=== PATIENT | female | born 1995 | race African-American/Black ===

== ENCOUNTER 2025-01-15 13:19 | Outpatient (AMB) | payer OTHER, SELFPAY ==
--- NOTE | 2025-01-15 13:22 | A.OFFVIS_ITS ---
Vital Signs 01/15/25 13:23 Height 5 ft 2 in Weight 265 lb BMI 48.5 BP 136/81 Blood Pressure Location Lt brachial Position Sitting Respiration 16 Pulse 112 H Pulse Source Pulse Oximeter Pulse Oximetry (%) 98 Oxygen Delivery Method Room Air Intake Visit Reasons: Low back pain Tunnel Inspector Required: No Allergies hydromorphone [From Dilaudid] Allergy (Severe, Verified 01/15/25 13:25) psychosis, vomiting iodine Allergy (Severe, Verified 01/15/25 13:25) itch, swelling Medication List - Last Reconciled 01/15/25 by Brea Ramos LPN buspirone 20 mg PO BID cholecalciferol (vitamin D3) 125 mcg PO DAILY clonazepam 0.25 mg PO DAILY hydrocodone-acetaminophen 5-300 mg 1 tab PO BID PRN lamotrigine (Lamictal) 100 mg PO DAILY lisdexamfetamine (Vyvanse) 50 mg PO DAILY lithium carbonate 900 mg PO BID montelukast (Singulair) 10 mg PO BEDTIME omeprazole 40 mg PO DAILY trazodone 50 mg PO BEDTIME valacyclovir (Valtrex) 500 mg PO DAILY venlafaxine ER (Effexor XR) 225 mg PO DAILY HPI HPI Low back pain: Details: History of Present Illness The patient is a 29-year-old female presenting with chronic back pain. The pain, predominantly localized to her upper and lower back, initiated approximately 10 years ago and is characterized by a severity of 7 to 8 on a 10-point scale. She has chronic conditions including degenerative disc disease, confirmed by lumbar MRI findings of a broad-based disc bulge and neural foraminal narrowing. Despite attempting physical and massage therapies, stretching techniques, and heat therapy, the patient reports minimal relief. Her ability to perform daily functions, particularly sleep, is hindered by the pain. Lifestyle adjustments are ongoing to address weight gain, a contributory factor to her pain experience. Pain Description - Onset: Approximately 10 years ago - Location: Upper and lower back - Radiation: Not specified - Severity: 7 to 8/10 - Character: Chronic - Aggravating factors: Bending, poor posture, weight - Alleviating factors: Deep tissue massage, stretching exercises, heat therapy - Interference: Sleep disruption, impacts daily living activities Physical Exam - Musculoskeletal- - Pain upon lumbar flexion of the back - Pain upon lumbar extension - Pain upon lateral bending to the left and right - Minimal pain upon axial rotation of the back Results - Imaging: MRI of lumbar spine showed broad-based disc bulge with shallow ridicular protrusion at L5-S1, impacting left S1 nerve root, associating with mild right and moderate left neural foraminal narrowing. Pain Management - Affect: Pain significantly impacts sleep and general wellbeing - Analgesia: Current medications include albuterol, buspirone, clonazepam, Effexor, lamictal, lithium, omeprazole, ubrelvy, zyrtec. Pain described as 7 to 8/10. 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 - Discussed potential candidacy for temporary nerve stimulation pending insurance approval and psychiatrist's clearance. I believe she would benefit from temporary medial branch nerve stimulation of the lumbar medial branches for multifactorial low back pain secondary to disc degeneration, facet arthritis and multifidus dysfunction. If psychological clearance is obtained, we will proceed with temporary medial branch nerve stimulation therapy starting with the left side followed by the right side 2 weeks later. - Discuss evidence-based risks of routine opioid use and avoid cortisone injections due to potential adverse long-term effects. - Follow-up on obtaining TENS unit and implementing it into pain management routine once authorized. Patient was informed and verbally consented to the use of an ambient scribe for clinic note documentation during this visit. Discussion Notes I discussed with the patient the management and treatment options for her chronic back pain, emphasizing non-pharmacological approaches such as physical therapy and lifestyle adjustments, including gym activities and postural modification. We reviewed the risks associated with frequent use of opioids and cortisone injections, focusing instead on the option of temporary medial branch nerve stimulation. She was informed of the detailed procedure process, insurance coverage considerations, and the need for psychological clearance. I advised her on the advantages of using non-pharmacological treatments and offered educational material on nerve stimulation. Instructions were given to follow up on authorization procedures, ensure psychological clearance, and continue current pain management strategies. Patient Instructions - Engage in regular exercises focusing on posture and flexibility. - Avoid the routine use of opioid medications. - Consult with a psychiatrist to obtain clearance for nerve stimulation. - Pursue swimming as a gentle exercise option. - Monitor pain levels and report any changes in severity. - Follow up with primary care regarding alternative pain management medications. Coding Level of Care Code New Pt Level 4 (17842) Diagnoses Lumbar spondylosis M47.816 Dysfunction of the multifidus muscle of lumbar region M62.85 Chronic pain G89.29
[2025-01-15 13:23] VITALS: BP 136/81; PULSE 112; RESP 16; O2SAT 98; BMI 48.5
--- OUTSIDE RECORDS SUMMARY | 2025-01-15 14:24 | XMS_ITS | Continuity of Care Document ---
Author Organization [facility] Address [address] [place] [address] Phone Care Team Providers Care Interactive Media Project Manager Name Role Phone Medical, Records Unavailable Unavailable Allergies, Adverse Reactions, Alerts Substance Reaction Status Criticality iodine ItchingItching Active No Informatio n HYDROMORPHONE HCL Active No Informa tion fish derived swelling/ itchy Active No Informati on shellfish derived swelling/ itchy Active No Info rmation peanut swelling/ itching Active No Informa tion Medications Medication Instructions Dosage Effective Dates (start - stop) Status Comments metformin 500 mg tablet take 1 tablet by oral route 2 times every day with morning and evening meals 500 MG - Active Valtrex 1 gram tablet take 1 tablet by oral route every 12 hours 1000 MG - Active Flomax 0.4 mg capsule take 1 capsule by oral route every day 1/2 hour following the same meal each day 0.4 MG - Active verapamil 80 mg tablet take 1 tablet by oral route 3 times every day 80 MG - Active albuterol sulfate HFA 90 mcg/actuation aerosol inhaler inhale 2 puff by inhalation route every 4 - 6 hours as needed 180 MCG - Active albuterol sulfate HFA 90 mcg/actuation aerosol inhaler inhale 2 puff by inhalation route every 4 - 6 hours as needed 180 MCG - Active famotidine 20 mg tablet take 1 tablet by oral route every day 20 MG - Active trazodone 150 mg tablet take 1 tablet by oral route every day 150 MG - Active lithium carbonate ER 450 mg tablet,extended release take 2 tablet by oral route at bedtime and take 1 tablet in the am - Active Protonix 40 mg tablet,delayed release take 1 tablet by oral route every day 40 MG - Active Singulair 10 mg tablet TAKE ONE TABLET BY MOUTH ONCE DAILY IN THE EVENING 10 MG - Active hydrocodone 5 mg-acetaminophen 325 mg tablet take 1 tablet by oral route every 6 hours as needed for pain 1.00 tablet - Active Vyvanse 50 mg capsule take 1 capsule by oral route every day in the morning 50 MG - Active hydroxyzine HCl 50 mg tablet take 2 tablet by oral route 2 times every day 100 MG - Active iron 325 mg (65 mg iron) tablet take 1 tablet by oral route every day 325 MG - Active Procedures Procedure Date OFFICE/OUTPATIENT VISIT, EST TB INTRADERMAL TEST ROUTINE VENIPUNCTURE SYST BP GE 130 - 139MM HG DIAST BP < 80 MM HG URINALYSIS NONAUTO W/O SCOPE OFFICE/OUTPATIENT VISIT, EST SYST BP LT 130 MM HG DIAST BP 80-89 MM HG ROUTINE VENIPUNCTURE OFFICE/OUTPATIENT VISIT, EST OFFICE/OUTPATIENT VISIT, EST ROUTINE VENIPUNCTURE SYST BP LT 130 MM HG DIAST BP < 80 MM HG OFFICE/OUTPATIENT VISIT, EST SARS-COV-2 DNA AMP PROBE SYST BP LT 130 MM HG DIAST BP < 80 MM HG SYST BP GE 130 - 139MM HG DIAST BP >= 90 MM HG OFFICE/OUTPATIENT VISIT, EST ROUTINE VENIPUNCTURE OFFICE/OUTPATIENT VISIT, EST OFFICE/OUTPATIENT VISIT, EST SYST BP GE 130 - 139MM HG DIAST BP 80-89 MM HG ROUTINE VENIPUNCTURE OFFICE/OUTPATIENT VISIT, EST Hpylori Test OFFICE/OUTPATIENT VISIT, EST SYST BP LT 130 MM HG DIAST BP < 80 MM HG GLYCATED HEMOGLOBIN TEST OFFICE/OUTPATIENT VISIT, EST SYST BP >= 140 MM HG6 IT DIAST BP 80-89 MM HG OFFICE/OUTPATIENT VISIT, EST SYST BP GE 130 - 139MM HG DIAST BP 80-89 MM HG ROUTINE VENIPUNCTURE OFFICE/OUTPATIENT VISIT, EST OFFICE/OUTPATIENT VISIT, EST SARS-COV-2 DNA AMP PROBE OFFICE/OUTPATIENT VISIT, EST SYST BP GE 130 - 139MM HG OFFICE/OUTPATIENT VISIT, EST URINALYSIS NONAUTO W/O SCOPE SYST BP >= 140 MM HG6 IT DIAST BP 80-89 MM HG Fee Ticket Printed In Error ROUTINE VENIPUNCTURE OFFICE/OUTPATIENT VISIT, EST OFFICE/OUTPATIENT VISIT, EST ROUTINE VENIPUNCTURE OFFICE/OUTPATIENT VISIT, EST OFFICE/OUTPATIENT VISIT, EST SYST BP LT 130 MM HG DIAST BP < 80 MM HG ROUTINE VENIPUNCTURE OFFICE/OUTPATIENT VISIT, EST ROUTINE VENIPUNCTURE OFFICE/OUTPATIENT VISIT, EST SYST BP GE 130 - 139MM HG DIAST BP 80-89 MM HG ROUTINE VENIPUNCTURE OFFICE/OUTPATIENT VISIT, EST SYST BP LT 130 MM HG DIAST BP < 80 MM HG TB INTRADERMAL TEST OFFICE/OUTPATIENT VISIT, EST OFFICE/OUTPATIENT VISIT, EST Fee Ticket Printed In Error URINALYSIS NONAUTO W/O SCOPE OFFICE/OUTPATIENT VISIT, EST ROUTINE VENIPUNCTURE Drug Screen [facility] Drug Classes OFFICE/OUTPATIENT VISIT, EST OFFICE/OUTPATIENT VISIT, EST OFFICE/OUTPATIENT VISIT, EST URINALYSIS NONAUTO W/O SCOPE URINE TEST OFFICE/OUTPATIENT VISIT, EST Rocephin injection Per 250 Mg URINALYSIS NONAUTO W/O SCOPE OFFICE/OUTPATIENT VISIT, EST STREP A ASSAY W/OPTIC OFFICE/OUTPATIENT VISIT, EST OFFICE/OUTPATIENT VISIT, EST OFFICE/OUTPATIENT VISIT, EST OFFICE/OUTPATIENT VISIT, EST BICILLIN L-A 100,000 UNITS Penicillin G Benzathine STREP A ASSAY W/OPTIC OFFICE/OUTPATIENT VISIT, EST OFFICE/OUTPATIENT VISIT, EST ROUTINE VENIPUNCTURE OFFICE/OUTPATIENT VISIT, EST URINALYSIS NONAUTO W/O SCOPE HETEROPHILE ANTIBODIES URINE TEST OFFICE/OUTPATIENT VISIT, EST OFFICE/OUTPATIENT VISIT, EST OFFICE/OUTPATIENT VISIT, EST URINALYSIS NONAUTO W/O SCOPE URINE TEST OFFICE/OUTPATIENT VISIT, EST DRAINAGE OF SKIN ABSCESS OFFICE/OUTPATIENT VISIT, EST SPECIMEN HANDLING ROUTINE VENIPUNCTURE URINALYSIS NONAUTO W/O SCOPE URINE TEST IMMUNIZATION ADMIN, EACH ADD TDAP VACCINE >7 IM MENINGOCOCCAL VACCINE, IM IMMUNIZATION ADMIN HEP A VACCINE, ADULT IM Pap Smear PREV VISIT, EST, AGE 18-39 OFFICE/OUTPATIENT VISIT, EST URINALYSIS NONAUTO W/O SCOPE OFFICE/OUTPATIENT VISIT, EST OFFICE/OUTPATIENT VISIT, EST IMMUNIZATION ADMIN Flu Vacc. Flucelvax Quad (ccIIV4) 4+year s Of Age OFFICE/OUTPATIENT VISIT, EST OFFICE/OUTPATIENT VISIT, EST OFFICE/OUTPATIENT VISIT, EST OFFICE/OUTPATIENT VISIT, EST OFFICE/OUTPATIENT VISIT, EST OFFICE/OUTPATIENT VISIT, EST OFFICE/OUTPATIENT VISIT, EST ROUTINE VENIPUNCTURE OFFICE/OUTPATIENT VISIT, EST OFFICE/OUTPATIENT VISIT, EST URINALYSIS NONAUTO W/O SCOPE OFFICE/OUTPATIENT VISIT, EST Fee Ticket Printed In Error OFFICE/OUTPATIENT VISIT, EST OFFICE/OUTPATIENT VISIT, EST ROUTINE VENIPUNCTURE OFFICE/OUTPATIENT VISIT, EST OFFICE/OUTPATIENT VISIT, EST TB INTRADERMAL TEST OFFICE/OUTPATIENT VISIT, EST OFFICE/OUTPATIENT VISIT, EST Hpylori Test OFFICE/OUTPATIENT VISIT, EST IMMUNIZATION ADMIN HEP B VACCINE, ADULT, IM OFFICE/OUTPATIENT VISIT, EST OFFICE/OUTPATIENT VISIT, EST OFFICE/OUTPATIENT VISIT, EST OFFICE/OUTPATIENT VISIT, EST OFFICE/OUTPATIENT VISIT, EST OFFICE/OUTPATIENT VISIT, EST OFFICE/OUTPATIENT VISIT, EST ELECTROCARDIOGRAM, COMPLETE OFFICE/OUTPATIENT VISIT, EST OFFICE/OUTPATIENT VISIT, EST OFFICE/OUTPATIENT VISIT, EST SPECIMEN HANDLING ROUTINE VENIPUNCTURE OFFICE/OUTPATIENT VISIT, EST OFFICE/OUTPATIENT VISIT, EST OFFICE/OUTPATIENT VISIT, EST OFFICE/OUTPATIENT VISIT, EST IMMUNIZATION ADMIN Flu Vacc. Fluarix Quad 3+ Yrs Of Age Apr OFFICE/OUTPATIENT VISIT, EST URINALYSIS NONAUTO W/O SCOPE URINALYSIS NONAUTO W/O SCOPE OFFICE/OUTPATIENT VISIT, EST Fee Ticket Printed In Error CHEST X-RAY 2V OFFICE/OUTPATIENT VISIT, EST IMMUNIZATION ADMIN HEP B VACC, ADOL, 2 DOSE, IM OFFICE/OUTPATIENT VISIT, EST Employment Physcial Advance Directives Directive Yes / No Effective Date File Name No Information Encounters Encounter Description Practice Location Reason(s) For Visit Diagnoses Date Provider Providers Copied on Encounter [facility], [address] [place] [address], [id number] , tel:[phone] [facility] No Information 3 Medical Records. [address] [place] [address], [id number]. [facility], [address] [place] [address], [id number] , tel:[phone] [facility] [place] No Information 2 Oniel Traore. [address] [place] [address], [id number] 0, [place], [place], [id number], . tel:[phone] [facility], [address] [place] [address], [id number] , [place] tel:[phone] [facility] No Information 2 Oniel Traore. [address] [place] [address], [id number] [place], [id number], [place]. tel:[phone] [facility], [address] [place] [address], [id number] , tel: [phone] [facility] Neuralgia and neuritis, unspecified 2 Bg Jordan. [address] [place] [address], [id number] 0, [place], [address], [place]. tel:[phone] [facility], [address] [place] [address], [id number] , tel:[phone] [facility] Urinary retention (chief complaint)Ben k Pain (chief complaint)Chr onic Infections (UTI) (chief complaint) Retention of urine, unspecifiedLo w back pain, unspecifiedTa chycardiaElev ated WBC countPersonal history of urinary (tract) infectionsFat igueIron deficiency anemia, unspecifiedAb normal finding of blood chemistry, unspecifiedBo dy mass index [BMI] 45.0-49.9, adultMorbid (severe) obesity due to excess caloriesAbnor mal finding on diagnostic imaging of other part of musculoskelet al systemNeuropa thy 2 Bg Jordan. [address] [place] [address], [id number] [place], [facility], [place]. tel:[phone] [facility], [address] [place] [address], [id number] , [place] tel:[phone] [facility] No Information 2 Ceballos Gwendolyn. [address] [place] [address], [id number] 0, [place], [place], [id number], [place]. tel:[phone] OFFICE/OUTPA TIENT VISIT, EST [facility], [address] [place] [address], [id number] , [place] tel: [phone] [facility] urinary retention (chief complaint)ben k pain (chief complaint) Body mass index [BMI] 45.0-49.9, adultRetentio n of urine, unspecifiedLo w back pain, unspecifiedNe uropathyEncou nter for screening for respiratory tuberculosisM igraine 2 Bg Nikki. [address] [place] [address], [id number] 0, [place], [address], [place]. tel:[phone] Referring Provider: Nikki Pederson, [address] [place] [address] [id number] 00, [place], [address]. tel:[phone] OFFICE/OUTPA TIENT VISIT, [facility], [address] [place] [address], [id number] , [place] [phone] [facility] UTI (chief complaint) Body mass index [BMI] 45.0-49.9, adultElevated WBC countHeadache TachycardiaVa ginitisDysuri a 2 Bg Nikki. [address] [place] [address], [id number] 0, [place], [address], [place]. tel:[phone] Referring Provider: Nikki Pederson, [address] [place] [address] [id number] 00, [place], [address]. tel:[phone] OFFICE/OUTPA TIENT VISIT, [facility], [address] [place] [address], [id number] , [place] [phone] [facility] Lab draw (chief complaint) No Information 2 Bg Nikki. [address] [place] [address], [id number] 0, [place], [address], [place]. tel:[phone] Referring Provider: Nikki Pederson, [address] [place] [address] [id number] 00, [place], [address]. tel:[phone] [facility], [address] [place] [address], [id number] , [place] [phone] [facility] [place] HeadacheCervi calgiaUnspeci fied subjective visual disturbancesE levated WBC count 2 Bg Nikki. [address] [place] [address], [id number] 0, [place], [address], [place]. tel:[phone] OFFICE/OUTPA TIENT VISIT, [facility], [address] [place] [address], [id number] , [place] tel:[phone] [facility] [place] pelvic pain (chief complaint)Hea dache (chief complaint) Body mass index [BMI] 45.0-49.9, adultPelvic painHeadacheF atigueElevate d WBC countTachycar diaMigraine 2 Bg Nikki. [address] [place] [address], [id number] 0TM, [place], [address], [place]. tel:[phone] Referring Provider: Nikki Pederson, [address] [place] [address] [id number] 00, [place], [facility]. tel:[phone] OFFICE/OUTPA TIENT VISIT, [facility], [address] [place] [address], [id number] , [place] [phone] [facility] [place] nasal congestion (chief complaint) Body mass index [BMI] 45.0-49.9, adultNasal congestionCon tact with and (suspected) exposure to COVID-19 2 Bg Nikki. [address] [place] [address], [id number] 0, [place], [address], [place]. tel:[phone] Referring Provider: Nikki Pederson, [address] [place] [address] [id number] 00, [place], [address]. tel:[phone] OFFICE/OUTPA TIENT VISIT, [facility], [address] [place] [address], [id number] , [place] [phone] [facility] [place] Body mass index [BMI] 45.0-49.9, adultIron deficiency anemiaType 2 diabetes mellitus with hyperglycemia Pain in right kneeAOM of right earPain in unspecified joint 2 Bg Jordan. [address] [place] [address], [id number] 0TM, [place], [address], [place]. tel:[phone] Referring Provider: Nikki Pederson, [address] [place] [address] [id number] 00TM, [place], [facility]. tel:[phone] [facility], [address] [place] [address], [id number] , [place] tel:[phone] [facility] Adult obstructive sleep apneaOther asthma 2 Bg Jordan. [address] [place] [address], [id number] 0, [place], [address], [place]. tel:[phone] OFFICE/OUTPA TIENT VISIT, [facility], [address] [place] [address], [id number] , [place] tel:[phone] [facility] [place] Lab draw (chief complaint) No Information 2 Bg Jordan. [address] [place] [address], [id number] 0, [place], [address], [place]. tel:[phone] OFFICE/OUTPA TIENT VISIT, [facility], [address] [place] [address], [id number] , [place] tel:[phone] [facility] SnoringAdult obstructive sleep apneaType 2 diabetes mellitus with hyperglycemia Polycystic ovarian syndromeSever e obesity due to excess caloriesAnemi aEncounter for STD screeningIron deficiency anemiaChronic pancreatitisA nxietyAcute vaginitisBody mass index [BMI] 45.0-49.9, adult 2 Bg Jordan. [address] [place] [address], [id number] 0, [place], [address], [place]. tel:[phone] [facility], [address] [place] [address], [id number] , [place] [phone] [facility] No Information 1 Bg Jordan. [address] [place] [address], [id number] 0, [place], [address], [place]. tel:[phone] OFFICE/OUTPA TIENT VISIT, [facility], [address] [place] [address], [id number] , tel:[phone] [facility] Lab draw (chief complaint) No Information 1 Tucker Snow. [address] [place] [address], [id number] 0, [place], [place], [id number], [place]. tel:[phone] OFFICE/OUTPA TIENT VISIT, [facility], [address] [place] [address], [id number] , [place] tel:[phone] [facility] Abdominal pain (chief complaint) Body mass index [BMI] 50.0-59.9, adultUnspecif ied abdominal painTachycard iaH. pylori as the cause of diseases classified elsewhereOthe r skin changes 1 Tucker Snow. [address] [place] [address], [id number] [place], [id number], [place]. tel:[phone] OFFICE/OUTPA TIENT VISIT, [facility], [address] [place] [address], [id number] , [place] tel:[phone] [facility] diabetes (chief complaint) Body mass index [BMI] 45.0-49.9, adultType 2 diabetes mellitus with hyperglycemia Dry skin dermatitisTac hycardiaLong term (current) use of oral hypoglycemic drugs 1 Tucker Snow. [address] [place] [address], [id number] [place], [id number], [place]. tel:[phone] OFFICE/OUTPA TIENT VISIT, [facility], [address] [place] [address], [id number] , [place] tel:[phone] [facility] Back pain (chief complaint)Cou gh (chief complaint)out side lab (chief complaint) Body mass index [BMI] 45.0-49.9, adultBack painCoughUppe r respiratory infection 1 Bg Jordan. [address] [place] [address], [id number] 0, [place], [address], [place]. tel:[phone] OFFICE/OUTPA TIENT VISIT, [facility], [address] [place] [address], [id number] , [place] tel:[phone] 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 [address] [place] [address], [id number] [place], [id number], [place]. tel:[phone] OFFICE/OUTPA TIENT VISIT, [facility], [address] [place] [address], [id number] , [place] tel:[phone] [facility] [place] COVID 19 (chief complaint) Body mass index [BMI] 45.0-49.9, adultContact with and (suspected) exposure to other viral communicable diseases 1 Tucker Snwo. [address] [place] [address], [id number] [place], [place], [id number], [place]. tel:[phone] OFFICE/OUTPA TIENT VISIT, [facility], [address] [place] [address], [id number] , [place] tel:[phone] [facility] diabetes (chief complaint) Type 2 diabetes mellitus with hyperglycemia halfway (current) use of oral hypoglycemic drugsBody mass index [BMI] 45.0-49.9, adult 1 Tucker Snow. [address] [place] [address], [id number] [place], [place], [id number], [place]. tel:[phone] [facility], [address] [place] [address], [id number] , [place] tel:[phone] [facility] No Information 1 Tucker Snow. [address] [place] [address], [id number] [place], [place], [id number], [place]. tel:[phone] OFFICE/OUTPA TIENT VISIT, [facility], [address] [place] [address], [id number] , [place] tel:[phone] [facility] [place] outside labs (chief complaint) Polycystic ovarian syndrome 1 Tucker Snow. [address] [place] [address], [id number] 0, [place], [place], [id number], [place]. tel:[phone] OFFICE/OUTPA TIENT VISIT, [facility], [address] [place] [address], [id number] , [place] tel: [phone] [facility] [place] Weight gain (chief complaint) Body mass index [BMI] 45.0-49.9, adultFatigueS evere obesity due to excess caloriesAnemi a 1 Tucker Snow. [address] [place] [address], [id number] 0, [place], [place], [id number], [place]. tel:[phone] [facility], [address] [place] [address], [id number] , [place] tel: [phone] [facility] [place] Back painArthritis 1 Tucker Snow. [address] [place] [address], [id number] 0, [place], [place], [id number], [place]. tel:[phone] OFFICE/OUTPA TIENT VISIT, [facility], [address] [place] [address], [id number] , [place] tel:[phone] [facility] [place] back pain (chief complaint) Body mass index [BMI] 45.0-49.9, adultTachycar diaBack pain 1 Tucker Snow. [address] [place] [address], [id number] 0, [place], [place], [id number], [place]. tel:[phone] OFFICE/OUTPA TIENT VISIT, [facility], [address] [place] [address], [id number] , [place] tel:[phone] [facility] [place] No Information 1 Tucker Snow. [address] [place] [address], [id number] 0, [place], [place], [id number], [place]. tel:[phone] Referring Provider: Franky Sanchez, [address] [place] [address] [id number] 00TM, [place], [address] . tel:[phone] OFFICE/OUTPA TIENT VISIT, [facility], [address] [place] [address], [id number] , [place] tel:[phone] [facility] abdominal pain (chief complaint) Body mass index [BMI] 45.0-49.9, adultAbdomina l painAmenorrhe a, unspecifiedPo lycystic ovarian syndrome 1 Tucker Snow. [address] [place] [address], [id number] 0, [place], [place], [id number], [place]. tel:[phone] OFFICE/OUTPA TIENT VISIT, [facility], [address] [place] [address], [id number] , [place] tel:[phone] [facility] Follow Up of Chronic Conditions (chief complaint)SUKHJINDER D (chief complaint)Rou joey labs requested (chief complaint) Body mass index [BMI] 45.0-49.9, adultGERD w/o esophagitisEn counter for screening for lipoid disordersEnco unter for STD screeningIron deficiency anemiaChronic pancreatitisP olycystic ovarian syndromeAnxie tyPrediabetes 1 Tucker Snow. [address] [place] [address], [id number] 0, [place], [place], [id number], [place]. [phone] [facility], [address] [place] [address], [id number] , [place] [phone] [facility] No Information 1 Eduin Hickey. [address] [place] [address], [id number] 0TM, [place], [place], [id number], [place]. tel:[phone] OFFICE/OUTPA TIENT VISIT, [facility], [address] [place] [address], [id number] , tel:[phone] [facility] PPD (chief complaint) Encounter for screening for respiratory tuberculosis Eduin Edelmira. [address] [place] [address], [id number] 0, [place], [place], [id number], . tel:[phone] [facility], [address] [place] [address], [id number] , tel:[phone] [facility] physical (chief complaint) Body mass index [BMI] 45.0-49.9, adult Fe- 1 Kirsty Miles. [address] [place] [address], [id number] 0, [place], [address]. tel:[phone] OFFICE/OUTPA TIENT VISIT, [facility], [address] [place] [address], [id number] , tel:[phone] [facility] Vaginal discharge (chief complaint)tac hycardia (chief complaint) Body mass index (BMI) 40.0-44.9, adultAcute vaginitisExpo sure to communicable diseaseImpair ed fasting glucoseTachyc ardiaSleep apnea 7 Aimee Matheus. [address] [place] [address], [id number] [place], [id number], . 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 [address] [place] [address], [id number] 0, [place], [place], [id number], [place]. tel:[phone] [facility], [address] [place] [address], [id number] , tel:[phone] [facility] No Information Eduin Edelmira. [address] [place] [address], [id number] 0, [place], [place], [id number], [place]. tel:[phone] OFFICE/OUTPA TIENT VISIT, [facility], [address] [place] [address], [id number] , [place] tel: [phone] [facility] [employer] [place] back pain (chief complaint)fat igue (chief complaint) CervicalgiaGE RD w/ esophagitisOt her asthmaTachyca rdiaLGSIL on cytologic smear of cervixLow back pain 7 Eduin Edelmira. [address] [place] [address], [id number] 0, [place], [place], [id number], [place]. tel:[phone] OFFICE/OUTPA TIENT VISIT, [facility], [address] [place] [address], [id number] , [place] tel: [phone] [facility] [employer] Vaginal discharge/itc katarina (chief complaint) Body mass index (BMI) 40.0-44.9, adultAcute vaginitisDysu noah Eduin Edelmira. [address] [place] [address], [id number] 0, [place], [place], [id number], [place]. tel:[phone] Referring Provider: Edelmira Denny [address] [place] [address] [id number] 00, [place], [address] . tel:[phone] OFFICE/OUTPA TIENT VISIT, [facility], [address] [place] [address], [id number] , [place] tel: [phone] [facility] [employer] STI (chief complaint) Contact with and (suspected) exposure to infections with a predominantly sexual mode of transmissionA cute vaginitis Nov- 7 Eduin Edelmira. [address] [place] [address], [id number] 0, [place], [place], [id number], [place]. tel:[phone] Referring Provider: Edelmira Denny [address] [place] [address] [id number] 00, [place], [address] . tel:[phone] OFFICE/OUTPA TIENT VISIT, [facility], [address] [place] [address], [id number] , [place] tel:[phone] [facility] [employer] [place] Sore throat, adult (chief complaint) Body mass index (BMI) 39.0-39.9, adultAcute pharyngitis, unspecified Mar-2 7 Tracy Solis. [address] [facility], [id number] 0TM, [place], [place], [id number]. tel:[phone] Referring Provider: Will Molina, [address] [facility] [id number] 00TM, [place], [address] . tel:[phone] OFFICE/OUTPA TIENT VISIT, [facility], [address] [place] [address], [id number] , [place] tel:[phone] [facility] [employer] [place] Sore throat (chief complaint) GERD w/ esophagitis Oct- 7 Fortunato Bunch. [address] [place] [address], [id number] [address]TM, [place], [place], [id number]. tel:[phone] [facility], [address] [place] [address], [id number] , [place] tel:[phone] [facility] [employer] No Information Oct- 7 Eduin Edelmira. [address] [place] [address], [id number] 0TM, [place], [place], [id number], [place]. tel:[phone] OFFICE/OUTPA TIENT VISIT, [facility], [address] [place] [address], [id number] , [place] tel:[phone] [facility] [employer] labs (chief complaint) Gastric ulcer w/o bleedingDiarr hea, unspecified Mar- 0- 7 Eduin Edelmira. [address] [place] [address], [id number] 0TM, [place], [place], [id number], [place]. tel:[phone] OFFICE/OUTPA TIENT VISIT, [facility], [address] [place] [address], [id number] , [place] tel:[phone] [facility] [employer] Sore throat (chief complaint) Acute pharyngitis, unspecifiedBo dy mass index (BMI) 39.0-39.9, adultUnspecif ied asthma, uncomplicated 7 Eduin Edelmira. [address] [place] [address], [id number] 0, [place], [place], [id number], [place]. [phone] Referring Provider: Edelmira Denny, [address] [place] [address] [id number] 00TM, [place], [address] . tel:[phone] OFFICE/OUTPA TIENT VISIT, [facility], [address] [place] [address], [id number] , [place] tel:[phone] [facility] STI (chief complaint) Body mass index (BMI) 39.0-39.9, adultContact with and (suspected) exposure to infections with a predominantly sexual mode of transmission 7 Eduin Edelmira. [address] [place] [address], [id number] 0, [place], [place], [id number], [place]. [phone] Referring Provider: Franky Sanchez, [address] [place] [address] [id number] 00, [place], [address] . tel:[phone] OFFICE/OUTPA TIENT VISIT, [facility], [address] [place] [address], [id number] , [place] tel:[phone] [facility] Fatigue (chief complaint)Diz ziness (chief complaint) FatigueDizzin ess and giddiness 7 Tracy Solis. [address] [facility], [id number] 0TM, [place], [place], [id number]. tel:[phone] OFFICE/OUTPA TIENT VISIT, [facility], [address] [place] [address], [id number] , tel:[phone] [facility] [employer] STI female (chief complaint)Sor e throat (peds) (chief complaint) Body mass index (BMI) 39.0-39.9, adultAcute pharyngitis, unspecifiedAc radha vaginitisTach ycardia 7 Remington Miller. [address] [place] [address], [id number] 0TM, [place], [place], [id number]. [phone] Referring Provider: Angela Ranchotriciajolene , [address] [place] [address] [id number] 00TM, [place], [address] . tel:[phone] OFFICE/OUTPA TIENT VISIT, [facility], [address] [place] [address], [id number] , [place] tel:[phone] [facility] Musculoskelet al pain (chief complaint)ast hma (chief complaint)SUKHJINDER D (chief complaint) GERD w/o esophagitisOt her asthmaPain in rt ankleTachycar diaBody mass index (BMI) 37.0-37.9, adult 7 Eduin Edelmira. [address] [place] [address], [id number] 0, [place], [place], [id number], [place]. tel:[phone] OFFICE/OUTPA TIENT VISIT, [facility], [address] [place] [address], [id number] , [place] tel:[phone] [facility] Earache (chief complaint)Cou gh (chief complaint) Body mass index (BMI) 38.0-38.9, adultOtitis mediaOther asthma 6 Eduin Edelmira. [address] [facility], [id number] 0, [place], [place], [id number], [place]. [phone] [facility], [address] [place] [address], [id number] , [place] tel:[phone] [facility] Unspecified asthma, uncomplicated Sleep apnea 6 Eduin Edelmira. [address] [place] [address], [id number] 0, [place], [place], [id number], [place]. tel:[phone] OFFICE/OUTPA TIENT VISIT, [facility], [address] [place] [address], [address] [place] [address] , tel:[phone] [facility] Urinary frequency (chief complaint)All ergies (chief complaint) Frequency of micturitionBo dy mass index (BMI) 37.0-37.9, adultAllergic rhinitisAnxie tyUnspecified asthma, uncomplicated Chronic serous otitis media, bilateralGERD w/o esophagitisH. pylori as the cause of diseases classified elsewhereLGSI L on cytologic smear of cervix Jun-2 6 Eduin Edelmira. [address] [place] [address], [id number] 0, [place], [address] [place] [address], . tel:[phone] Referring Provider: Edelmira Denny, [address] [place] [address] [id number] 00, [place], [address] . tel:[phone] [facility], [address] [place] [address], [address] [place] [address] , tel:[phone] [facility] [employer] [place] LGSIL on cytologic smear of cervix 6 Eduin Edelmira. [address] [place] [address], [id number] 0, [place], [address] [place] [address], . [phone] OFFICE/OUTPA TIENT VISIT, [facility], [address] [place] [address], [address] [place] [address] , tel:[phone] [facility] [employer] [place] Infection (soft tissue) (chief complaint) Body mass index (BMI) 36.0-36.9, adultOther asthmaCelluli tis of right toeCutaneous abscess of right foot Jun-0 6 Eduin Edelmira. [address] [place] [address], [id number] 0, [place], [place], [id number], . [phone] Referring Provider: Edelmira Denny, [address] [place] [address] [id number] 00, [place], [address] . tel:[phone] PREV VISIT, [facility], AGE 18-39 [facility], [address] [place] [address], [id number] , [place] tel:[phone] [facility] [employer] Preventive exam (chief complaint)ast hma (chief complaint)ben k pain (chief complaint) Encntr for general adult medical exam w/o abnormal findingsAnxie tyUnspecified asthma, uncomplicated Allergic rhinitisGERD w/o esophagitisCe rvicalgiaScol iosisTachycar diaBody mass index (BMI) 28.0-28.9, adultContact with and (suspected) exposure to infections with a predominantly sexual mode of transmission 6 Eduin Edelmira. [address] [place] [address], [id number] 0, [place], [place], [id number], [place]. tel:[phone] Referring Provider: Edelmira Denny, [address] [place] [address] [id number] 00, [place], [address] . tel:[phone] OFFICE/OUTPA TIENT VISIT, [facility], [address] [place] [address], [id number] , [place] tel:[phone] [facility] [employer] Sore throat (chief complaint)Mus culoskeletal pain (chief complaint) Body mass index (BMI) 36.0-36.9, adultUnspecif ied asthma, uncomplicated Acute upper respiratory infection, unspecifiedPa in in right wrist 6 Tracy Solis. [address] [facility], [id number] 0TM, [place], [place], [id number]. [phone] OFFICE/OUTPA TIENT VISIT, [facility], [address] [place] [address], [id number] , [place] tel:[phone] [facility] [employer] Back pain (chief complaint) Body mass index (BMI) 37.0-37.9, adultUpper abdominal pain, unspecified 6 Eduin Edelmira. [address] [place] [address], [id number] 0, [place], [place], [id number], [place]. tel:[phone] Referring Provider: Edelmira Denny [address] [place] [address] [id number] 00, [place], [address] . tel:[phone] OFFICE/OUTPA TIENT VISIT, [facility], [address] [place] [address], [id number] , tel:[phone] [facility] No Information 6 Eduin Edelmira. [address] [place] [address], [id number] 0, [place], [place], [address], [place]. [phone] OFFICE/OUTPA TIENT VISIT, [facility], [address] [place] [address], [id number] , [place] tel: [phone] [facility] flu shot (chief complaint) Encounter for immunization 6 [facility]. [address] [place] [address], [id number] 0, [place], [place], [address], [place]. tel:[phone] OFFICE/OUTPA TIENT VISIT, [facility], [address] [place] [address], [id number] , [place] tel: [phone] [facility] Abdominal pain (chief complaint)Mus culoskeletal pain (chief complaint) Body mass index (BMI) 36.0-36.9, adultUpper abdominal pain, unspecifiedGE RD w/o esophagitisH. pylori as the cause of diseases classified elsewherePain in rt ankleScoliosi sTachycardiaU nspecified asthma, uncomplicated 6 [facility]. [address] [place] [address], [id number] 0, [place], [place], [id number], [place]. tel:[phone] OFFICE/OUTPA TIENT VISIT, [facility], [address] [place] [address], [id number] , [place] tel:[phone] [facility] Anxiety (chief complaint)Hea dache (chief complaint) Body mass index (BMI) 35.0-35.9, adultHeadache Anxiety 6 Gabrielebapaul Diane. [address] [place] [address], [id number] 0, [place], [place], [id number]. tel:[phone] OFFICE/OUTPA TIENT VISIT, [facility], [address] [place] [address], [id number] , [place] tel:[phone] [facility] Musculoskelet al pain (chief complaint) Body mass index (BMI) 35.0-35.9, adultUnspecif ied asthma, uncomplicated Pain in rt ankleTachycar lizet 6 Eduin Edelmira. [address] [place] [address], [id number] 0TM, [place], [place], [id number], [place]. tel:[phone] OFFICE/OUTPA TIENT VISIT, [facility], [address] [place] [address], [id number] , [place] tel:[phone] [facility] lab draw (chief complaint) Tachycardia 6 [facility]. [address] [place] [address], [id number] 0, [place], [place], [address]. tel:[phone] Referring Provider: Franky Sanchez, [address] [place] [address] [id number] 00, [place], [address] . tel:[phone] OFFICE/OUTPA TIENT VISIT, [facility], [address] [place] [address], [id number] , tel:[phone] [facility] Musculoskelet al Pain (chief complaint)Pal pitations (chief complaint)Anx iety (chief complaint) TachycardiaPa in in left kneeAnxiety 6 [facility]. [address] [place] [address], [id number] 0, [place], [place], [address]. tel:[phone] OFFICE/OUTPA TIENT VISIT, [facility], [address] [place] [address], [id number] , [place] tel:[phone] [facility] STI (chief complaint) Contact with and (suspected) exposure to infections with a predominantly sexual mode of transmissionB francoise mass index (BMI) 34.0-34.9, adult 6 Eduin Edelmira. [address] [place] [address], [id number] 0, [place], [place], [id number], [place]. [phone] Referring Provider: Edelmira Denny, [address] [place] [address] [id number] 00, [place], [address] . tel:[phone] OFFICE/OUTPA TIENT VISIT, [facility], [address] [place] [address], [id number] , [place] tel:[phone] [facility] headache (chief complaint)Nec k pain (chief complaint)dep ression (chief complaint) CervicalgiaTa chycardia, unspecifiedHe adacheAnxiety 6 Garbapaul Diane. [address] [place] [address], [id number] [place], [id number]. tel:[phone] [facility], [address] [place] [address], [id number] , [place] tel:[phone] [facility] No Information 6 Eduin Edelmira. [address] [place] [address], [id number] 0, [place], [place], [id number], [place]. tel:[phone] OFFICE/OUTPA TIENT VISIT, [facility], [address] [place] [address], [id number] , [place] tel:[phone] [facility] labs (chief complaint) Contact with and (suspected) exposure to infections with a predominantly sexual mode of transmission 6 Eduin Edelmira. [address] [place] [address], [id number] [place], [id number], [place]. tel:[phone] Referring Provider: Franky Sanchez, [address] [place] [address] [id number] 00, [place], [address] . tel:[phone] OFFICE/OUTPA TIENT VISIT, [facility], [address] [place] [address], [id number] , [place] tel: [phone] [facility] STI (chief complaint) Contact with and (suspected) exposure to infections with a predominantly sexual mode of transmissionB francoise mass index (BMI) 34.0-34.9, adult Ilan-0 9-[address], [id number] 0, [place], [place], [id number], [place]. tel:[phone] OFFICE/OUTPA TIENT VISIT, [facility], [address] [place] [address], [id number] , [place] tel: [phone] [facility] ppd placement (chief complaint) Encounter for screening for respiratory tuberculosis [address], [id number] 0, [place], [place], [id number], [place]. tel:[phone] Referring Provider: Edelmira Denny [address] [place] [address] [id number] 00, [place], [address] . tel:[phone] OFFICE/OUTPA TIENT VISIT, [facility], [address] [place] [address], [id number] , [place] tel: [phone] [facility] Abdominal pain (chief complaint) Body mass index (BMI) 34.0-34.9, adultUnspecif ied abdominal painH. pylori as the cause of diseases classified elsewhereGERD w/o esophagitis [address], [id number] 0, [place], [place], [address], [place]. tel:[phone] Referring Provider: Edelmira Denny [address] [place] [address] [id number] 00, [place], [address] . tel:[phone] OFFICE/OUTPA TIENT VISIT, [facility], [address] [place] [address], [id number] , [place] tel: [phone] [facility] shot (chief complaint) Encounter for immunization Ilan-0 3-201 6 Eduin Edelmira. [address] [place] [address], [id number] 0, [place], [place], [address], [place]. [phone] OFFICE/OUTPA TIENT VISIT, [facility], [address] [place] [address], [id number] , [place] tel: [phone] [facility] Musculoskelet al pain (chief complaint) Pain in left ankleBody mass index (BMI) 34.0-34.9, adult December-3 -201 6 Eduin Edelmira. [address] [place] [address], [id number] 0, [place], [place], [address], [place]. tel:[phone] OFFICE/OUTPA TIENT VISIT, [facility], [address] [place] [address], [id number] , [place] tel: [phone] [facility] Soft tissue swelling (chief complaint) Body mass index (BMI) 35.0-35.9, adultCellulit is of buttock December-08 18- 6 Eduin Edelmira. [address] [place] [address], [id number] 0, [place], [place], [address], [place]. tel:[phone] OFFICE/OUTPA TIENT VISIT, [facility], [address] [place] [address], [id number] , [place] tel: [phone] [facility] URI (chief complaint) Allergic rhinitisGastr o-esophageal reflux disease without esophagitisOt itis media, unspecified, bilateralSinu sitisUnspecif ied asthma, uncomplicated Apr-0 6-201 6 Eduin Edelmira. [address] [place] [address], [id number] 0, [place], [place], [address], [place]. tel:[phone] OFFICE/OUTPA TIENT VISIT, [facility], [address] [place] [address], [id number] , [place] tel: [phone] [facility] Mole(s) (chief complaint) Neoplasm of skin Mar-0 9-201 6 Eduin Edelmira. [address] [place] [address], [id number] [place], [address], [place]. [phone] OFFICE/OUTPA TIENT VISIT, [facility], [address] [place] [address], [id number] , [place] tel: [phone] [facility] lab draw (chief complaint) Contact with and (suspected) exposure to infections with a predominantly sexual mode of transmission 6 Eduin Edelmira. [address] [place] [address], [id number] 0, [place], [place], [address], [place]. [phone] OFFICE/OUTPA TIENT VISIT, [facility], [address] [place] [address], [id number] , [place] tel: [phone] [facility] Cough (chief complaint) Body mass index (BMI) 34.0-34.9, adultTachycar lizet, unspecifiedUn specified asthma, uncomplicated Allergic rhinitisSinus itis 6 Eduin Edelmira. [address] [place] [address], [id number] [place], [id number], [place]. tel:[phone] OFFICE/OUTPA TIENT VISIT, [facility], [address] [place] [address], [id number] , [place] tel: [phone] [facility] STI (chief complaint)Vag inal itching (chief complaint) Acute vaginitisCont act with and (suspected) exposure to infections with a predominantly sexual mode of transmission 6 Eduin Edelmira. [address] [place] [address], [id number] 0, [place], [place], [address], [place]. tel:[phone] OFFICE/OUTPA TIENT VISIT, [facility], [address] [place] [address], [id number] , [place] tel: [phone] [facility] STI (chief complaint) Acute vaginitisCont act with and (suspected) exposure to infections with a predominantly sexual mode of transmission Dec-2 1-201 5 Eduin Edelmira. [address] [place] [address], [id number] 0TM, [place], [place], [id number], [place]. tel:[phone] Referring Provider: Franky Sanchez, [address] [place] [address] [id number] 00TM, [place], [address] . tel:[phone] OFFICE/OUTPA TIENT VISIT, [facility], [address] [place] [address], [id number] , [place] tel: [phone] [facility] [employer] Earache (chief complaint) Chronic serous otitis media, bilateral 5 Eduin Edelmira. [address] [place] [address], [id number] 0, [place], [place], [address], [place]. tel:[phone] OFFICE/OUTPA TIENT VISIT, [facility], [address] [place] [address], [id number] , [place] tel: [phone] [facility] Earache (chief complaint) Unspecified asthma, uncomplicated CervicalgiaOt itis media, unspecified, bilateralAlle rgic rhinitis 5 Eduin Edelmira. [address] [place] [address], [id number] 0, [place], [place], [address], [place]. tel:[phone] OFFICE/OUTPA TIENT VISIT, [facility], [address] [place] [address], [id number] , [place] tel: [phone] [facility] Vaginal discharge (chief complaint)ben k pain (chief complaint) Body mass index (BMI) 35.0-35.9, adultPostural lordosis, thoracolumbar regionUnspeci fied asthma, uncomplicated Gastro-esopha geal reflux disease without esophagitisCe rvicalgiaAcut e vaginitisScol iosis 9 5 Eduin Edelmira. [address] [place] [address], [id number] [place], [id number], [place]. tel:[phone] OFFICE/OUTPA TIENT VISIT, [facility], [address] [place] [address], [id number] , [place] tel:[phone] [facility] [employer] No Information Eduin Hickey. [address] [place] [address], [id number] 0, [place], [address], [place]. [phone] OFFICE/OUTPA TIENT VISIT, [facility], [address] [place] [address], [id number] , [place] tel:[phone] [facility] [employer] asthma (chief complaint)ben k pain (chief complaint)Vag inal itching (chief complaint) AsthmaNeck painLordosisG ERDAbdominal pain, other specified site Eduin Hickey. [address] [place] [address], [id number] 0, [place], [place], [address], [place]. tel:[phone] Referring Provider: Edelmira Denny, [address] [place] [address] [id number] 00, [place], [address] . tel:[phone] OFFICE/OUTPA TIENT VISIT, [facility], [address] [place] [address], [id number] , [place] tel:[phone] [facility] Vaginal discharge (chief complaint) DysuriaObesit yVaginitis [facility]. [address] [place] [address], [id number] 0, [place], [place], [id number], [place]. tel:[phone] [facility], [address] [place] [address], [id number] , [place] tel:[phone] [facility] Landy No Information Alan Hearn. [address] [place] [address], [id number] 0, [place], [place], [address]. tel:[phone] OFFICE/OUTPA TIENT VISIT, [facility], [address] [place] [address], [id number] , [place] tel:[phone] [facility] Neck pain (chief complaint)Ast hma (chief complaint) Neck painAsthma 5 Alan Hearn. [address] [place] [address], [id number] 0, [place], [place], [address]. tel:[phone] [facility], [address] [place] [address], [id number] , [place] tel:[phone] [facility] vaccines (chief complaint) ROUTINE MEDICAL EXAM 5 Jerrodritu Waldenice. [address] [place] [address], [id number] 0TM, [place], [address]. tel:[phone] OFFICE/OUTPA TIENT VISIT, EST [facility], [address] [place] [address], [id number] , [place] tel:[phone] [facility] No Information 5 Yuriy Jones. [address] [place] [address], [id number] 0, [place], [address], [place]. tel:[phone] [facility], [address] [place] [address], [id number] , [place] tel:[phone] [facility] Employee physical (chief complaint) ROUTINE MEDICAL EXAMObesity 5 Kwame Morrell. [address] [place] [address], [id number] 0, [place], [place], [id number]. tel:[phone] Family History Family Member Type Diagnosis Age At Onset Problem (finding) Family history of hyper tension Problem (finding) Family history of strok e Immunizations Vaccine Date Status Comments VZV administered Source: Other R egistry HEP A ADULT administered Source: Other R egistry Hep A (adult) administered Source: New Im munization Record MCV4 administered Source: New Imm unization Record Tdap administered Source: New Imm unization Record Influenza, injectable, MDCK, preservative free Flucelvax [id number] administered Source: New Immuniza tion Record TDAP administered Source: Other R egistry Hep B (adult) administered Source: New Im munization Record Hep B (adult, 2 dose) administered Source : New Immunization Record HPV4 administered Source: Other R egistry HPV4 administered Source: Other R egistry HPV4 administered Source: Other R egistry HEP A administered Source: Other R egistry MCV4 administered Source: Other R egistry [id number] administered Source: Other R egistry TDAP administered Source: Other R egistry INFLUENZA administered Source: Other R egistry IPV administered Source: Other R egistry MMR administered Source: Other R egistry DTAP administered Source: Other R egistry HIB UNK administered Source: Other R egistry DTP administered Source: Other R egistry HIB UNK administered Source: Other R egistry MMR administered Source: Other R egistry HEP B administered Source: Other R egistry OPV administered Source: Other R egistry DTP administered Source: Other R egistry OPV administered Source: Other R egistry DTP administered Source: Other R egistry OPV administered Source: Other R egistry DTP administered Source: Other R egistry HIB UNK administered Source: Other R egistry HEP B administered Source: Other R egistry HIB UNK administered Source: Other R egistry HEP B administered Source: Other R egistry Payers Payer name Insurance type Covered democrat ID Geovany hollis(s) [employer] [facility] [id number] [employer] Commercial CI [id number] [employer] CI [id number] [employer] CI [id number] Social History Type Description Quantity Date Captured Comments Alcohol Use Details Unknown Caffeine Use Details Unknown Tobacco Use Status No Information Smoking Status No Information Sex Female Sexual Orientation Straight or heterosexual Gender Identity Female Chief Complaint And Reason For Visit No Information Reason For Referral Reason For Referral No Information Plan Of Treatment Date Type Action Status Goal Foot exam. Due on 2 due Goal Hemoglobin A1C. Due on due Goal Hep B (2nd). Due on 99 due Goal ASCVD 10 year risk. Due on due Goal Hep B (3rd). Due on 99 due Goal Dilated eye exam. Due on Oct due Goal Hep B (1st). Due on 023 due Goal Hepatitis C Scre ening. Due on due Goal Anxiety/Depressi on Screen (PHQ-2). Due on due Goal Unhealthy drug use screening due Goal Lipid panel. Due on 035 due Goal PAP. Due on due Goal Urine microalbumin. Due on due Goal Hep B (3rd). Due on 99 due Goal Urine microalbumin. Due on due Goal Hemoglobin A1C. Due on due Goal Hepatitis C Scre ening. Due on due Goal Foot exam. Due on 2 due Goal Hep B (1st). Due on 022 due Goal Hep B (2nd). Due on 99 due Goal Unhealthy drug use screening due Goal ASCVD 10 year risk. Due on due Goal Dilated eye exam. Due on Feb due Goal Anxiety/Depressi on Screen (PHQ-2). Due on due Goal Lipid panel. Due on 035 due Goal PAP. Due on due Goal Hemoglobin A1C. Due on due Goal Hep B (1st). Due on due Goal Dilated eye exam. Due on Jan due Goal Hep B (2nd). Due on 995 due Goal Foot exam. Due on due Goal ASCVD 10 year risk. Due on due Goal PAP. Due on due Goal Urine microalbumin. Due on due Goal Hep B (3rd). Due on 99 due Goal Unhealthy drug use screening due Goal Lipid panel. Due on 035 due Goal Hepatitis C Scre ening. Due on due Goal Anxiety/Depressi on Screen (PHQ-2). Due on due Goal Hepatitis C Scre ening. Due on due Goal Urine microalbumin. Due on due Goal Hep B (3rd). Due on 99 due Goal Hemoglobin A1C. Due on due Goal Dilated eye exam. Due on Jan due Goal Lipid panel. Due on 035 due Goal Hep B (1st). Due on 022 due Goal Foot exam. Due on due Goal ASCVD 10 year risk. Due on due Goal PAP. Due on due Goal Anxiety/Depressi on Screen (PHQ-2). Due on due Goal Unhealthy drug use screening due Goal Hep B (). Due on 99 due Goal Unhealthy drug use screening due Goal Anxiety/Depressi on Screen (PHQ-2). Due on due Goal PAP. Due on due Goal Dilated eye exam. Due on Jan due Goal Hepatitis C Scre ening. Due on due Goal Urine microalbumin. Due on due Goal Hep B (1st). Due on due Goal Foot exam. Due on 2 due Goal Hep B (3rd). Due on 99 due Goal Hemoglobin A1C. Due on due Goal Hep B (2nd). Due on 99 due Goal ASCVD 10 year risk. Due on due Goal Lipid panel. Due on 035 due Goal Dietary manageme nt education, guidance, and counseling completed Goal Urine microalbumin. Due on due Goal Hep B (3rd). Due on 99 due Goal PAP. Due on due Goal ASCVD 10 year risk. Due on due Goal Anxiety/Depressi on Screen (PHQ-2). Due on due Goal Hep B (2nd). Due on 99 due Goal Lipid panel. Due on 035 due Goal Unhealthy drug use screening due Goal Hepatitis C Scre ening. Due on due Goal Dilated eye exam. Due on Jan due Goal Foot exam. Due on 2 due Goal Hemoglobin A1C. Due on due Goal Hep B (1st). Due on 022 due Goal Dietary manageme nt education, guidance, and counseling completed Goal Tobacco cessation counseling completed Goal Hep B (2nd). Due on 99 due Goal Urine microalbumin. Due on due Goal Hemoglobin A1C. Due on due Goal PAP. Due on due Goal Anxiety/Depressi on Screen (PHQ-2). Due on due Goal Hepatitis C Scre ening. Due on due Goal Lipid panel. Due on 035 due Goal Dilated eye exam. Due on December due Goal Hep B (1st). Due on 022 due Goal Foot exam. Due on 2 due Goal Hep B (3rd). Due on 996 due Goal ASCVD 10 year risk. Due on due Goal Unhealthy drug use screening due Goal Dilated eye exam. Due on December due Goal Urine microalbumin. Due on due Goal Hepatitis C Scre ening. Due on due Goal Anxiety/Depressi on Screen (PHQ-2). Due on due Goal Hep B (2nd). Due on 99 due Goal Foot exam. Due on due Goal Hep B (1st). Due on due Goal ASCVD 10 year risk. Due on due Goal Hep B (3rd). Due on 99 due Goal PAP. Due on due Goal Unhealthy drug use screening due Goal Lipid panel. Due on 035 due Goal Hemoglobin A1C. Due on due Goal ASCVD 10 year risk. Due on due Goal Dilated eye exam. Due on December due Goal Hep B (3rd). Due on 99 due Goal Foot exam. Due on 2 due Goal Hemoglobin A1C. Due on due Goal PAP. Due on due Goal Hep B (2nd). Due on 99 due Goal Urine microalbumin. Due on due Goal Hep B (1st). Due on due Goal Lipid panel. Due on 035 due Goal Anxiety/Depressi on Screen (PHQ-2). Due on due Goal Unhealthy drug use screening due Goal Hepatitis C Scre ening. Due on due Goal Tobacco cessation counseling completed Goal Hemoglobin A1C. Due on due Goal ASCVD 10 year risk. Due on A due Goal Anxiety/Depressi on Screen (PHQ-2). Due on due Goal Hep B (1st). Due on 022 due Goal Hep B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 Associated symptoms include accelerated respirations, cough and wheezing. Pertinent negatives include abdominal pain, chest pain, chest congestion, chest retractions, decreased appetite, decreased fluid intake, decreased sleep, decreased urine output, diarrhea, dysuria, eye discharge, fatigue, fever, fussiness, headache, increased sleep, nausea, otalgia, pharyngitis, rash, rhinorrhea, vomiting or weight loss.Patient has a history of asthma. Patient has not had a life threatening asthma exacerbation requiring intubation and/or ICU admission. She is using Rescue MDI 4-6 times daily to control sx. back pain The problem is s table. It occurs persistently. Location of pain is lower back. Pain is radiated to the back.The patient describes the pain as an ache and deep. Symptoms are aggravated by daily activities. Symptoms are relieved by pain meds/drugs. Vaginal itching Her symptoms beg an 3 Weeks ago. The symptoms are reported as being severe. Presently the patient is experiencing vaginal irritation. Her symptoms are not aggravated by anything. Her symptoms are associated with vaginal burning but she denies fever or dysuria. Vaginal discharge Her symptoms b lee 1 Week ago. She states the problem has worsened. The symptoms are reported as being moderate. Presently the patient is experiencing vaginal itching, vaginal irritation and vaginal discharge. Character is cottage cheese-like. The patient has a history of bacterial vaginosis and yeast. Her symptoms are not aggravated by anything. Her symptoms are not relieved by anything. She denies fever, dyspareunia, vaginal burning, dysuria, frequent urination, genital lesions, genital rash, genital ulcers, herpes genitalis, itching skin of vaginal/groin or vulvar dystrophy. Additional information: patient has had incresed odor and itching. Neck pain Onset: 3 years a go. The severity of the problem is moderate. The problem has worsened. The frequency of pain is intermittent. Location of pain is bilateral lateral neck, bilateral posterior neck, bilateral upper back and bilateral mid back. Additional information: Pt had lordosis and believes it's becoming worse. Pts symptoms include: stiff neck, back pain and nausea and dizziness. Pt currently takes tramadol and flexeril. Asthma The severity of the problem is moderate. The problem has not changed. The frequency of symptoms is intermittent. It occurs seasonally, with URI's and with weather changes. Aggravating factors include animal dander, exercise, increased activity, pollen, smoke and weather changes. Symptoms are relieved by albuterol (MDI: 2 treatment(s) were given today and last treatment given 2 hours ago). Pt needs refill on proair today. Neck pain (comments) Pt here tod ay to establish care.Pt is currently waiting for her insurance to go into effect so she can further evaluate the neck pain. Asthma (comments) Pt reports she has had asthma for years. Routinely only uses an albuterol inhaler as needed.Does report she has taken Singulair in the past with good results. Wants to wait until insurance is active before getting meds. vaccines hep b vaccine gi radha. [employer] Employee physical Functional Status Date Functional Assessmen t No Information Instructions Date Instruction Additional Infor calvin - see plans above - continue current meds Related to Neuropathy - referring back to neurology (she needs new referral) - referring to hematology - continue f/u with pain management as scheduled Related to Abnormal finding on diagnostic imaging of other part of musculoskeletal system Pt. Education: 1) To day's instructions / counseling include(s) Dietary management education, guidance, and counseling. Weight monitoring. Related to Body mass index [BMI] 45.0-49.9, adult 1. Recommended walki ng briskly 1-2 hours a daily.2. Copy of sample menus of low calorie diet.3. Maintain adequate hydration4. Low carb/Low sugar diet.5. Advised patient to start [id number] karan diet to help with weight control Related to Morbid (severe) obesity due to excess calories - see above plan Related to Abno rmal finding of blood chemistry, unspecified see above Related to Perso nal history of urinary (tract) infections see above plans Related to Fatig ue - referring to hemat ology - f/u with urology as scheduled Related to Elevated WBC count - continue oral iron Related to Iron deficiency anemia, unspecified - she has neurologis t, she missed her appointment for migraines (which have improved) and missed her appointment. i recommend she call today and bring mri results to discuss with neurologist - continue current meds - continue seeing pain management Related to Low back pain, unspecified - see urology as tim anisa, call them and make sure she can see them stat and call me back and let me know if she has any issues - keep silva as directed, empty silva bag as directed1 MOS F/U Related to Retention of urine, unspecified Chronic- tried propa nol in past but she does not want to go back on propanolol Related to Tachycardia - recommended patien t go to ED for urinary retention, worsening back pain, and neuropathy Related to Retention of urine, unspecified - recommended patien t go to ED for worsening back pain, worsening neuropathy, and urinary retentionrtc 2-3 weeks Related to Neuropathy - recommended patien t go to ED for worsening back pain, worsening neuropathy, and urinary retentionrtc 2-3 weeks Related to Low back pain, unspecified Pt. Education: 1) To day's instructions / counseling include(s) Dietary management education, guidance, and counseling. Weight monitoring. Related to Body mass index [BMI] 45.0-49.9, adult - ppd palced as requested by jessica padgett Related to Encounter for screening for respiratory tuberculosis - discussed ann marie barraza with neuro - imaging on brain was wnl 12/2021 Related to Migraine Weight monitoring Related to Bod y mass index [BMI] 45.0-49.9, adult Dietary management e ducation, guidance, and counseling Related to Body mass index [BMI] 45.0-49.9, adult - simed neuro referral placed Re lated to Headache Chronic- tried propa nol in past but she does not want to go back on propanolol Related to Tachycardia Dietary management e ducation, guidance, and counseling Related to Body mass index [BMI] 45.0-49.9, adult Weight monitoring Related to Bod y mass index [BMI] 45.0-49.9, adult - simed neuro referral placed Re lated to Headache - requesting [facility] records so i may review imaging- recommend patient take antibiotics as prescribed by ED- urine in office WNL1 montejo f/u Related to Pelvic pain see plan below Related to Heada mariela - checking labs Related to Fatig ue - trial topamax 25 m g qhs x 1 week then increase to 25 mg BID Related to Migraine - ordering CBC to be drawn today- she was given antibiotics in ED but has not started them yet, recommended she do so Related to Elevated WBC count Chronic- tried propa nol in past but she does not want to go back on propanolol Related to Tachycardia Pt. Education: 1) To day's instructions / counseling include(s) Dietary management education, guidance, and counseling. Weight monitoring. Related to Body mass index [BMI] 45.0-49.9, adult Weight monitoring Related to Bod y mass index [BMI] 45.0-49.9, adult Dietary needs education Related to Body mass index [BMI] 45.0-49.9, adult (-) for covid-19 in the office today- letter given to patient stating this RTC for routine primary care Related to Contact with and (suspected) exposure to COVID-19 Pt. Education: 1) To day's instructions / counseling include(s) Dietary management education, guidance, and counseling. Weight monitoring. Related to Body mass index [BMI] 45.0-49.9, adult see below Related to Nasal congestion Weight monitoring Related to Bod y mass index [BMI] 45.0-49.9, adult Dietary management e ducation, guidance, and counseling Related to Body mass index [BMI] 45.0-49.9, adult continue routine f/u with Relate d to Pain in right knee Patient education:1) Continue diet/lifestyle modifications-low carb diet2) ADA diet reviewed as well as diet and exercise3) Daily foot care and inspection discussed4) Continue home blood sugar checks and log for review at next office visit5) Discussed importance of annual diabetic eye examMedication Management:1) Continue Metformin 500mg BID F/U for repeat A1C in 6 months Related to Type 2 diabetes mellitus with hyperglycemia ChronicMed: iron lana lyDiscussed repeat labsDiscussed dietRTC in 1-2 weeks to discuss labs Related to Iron deficiency anemia Weight monitoring Related to Bod y mass index [BMI] 45.0-49.9, adult Dietary needs education Related to Body mass index [BMI] 45.0-49.9, adult start on metronidazo le and fluconazoleurine dip negative. Related to Acute vaginitis Patient education:1) Continue diet/lifestyle modifications-low carb diet2) ADA diet reviewed as well as diet and exercise3) Daily foot care and inspection discussed4) Continue home blood sugar checks and log for review at next office visit5) Discussed importance of annual diabetic eye examMedication Management:1) Continue Metformin 500mg BID F/U for repeat A1C in 6 months Related to Type 2 diabetes mellitus with hyperglycemia ChronicMed: iron lana lyDiscussed repeat labsDiscussed dietRTC in 1-2 weeks to discuss labs Related to Iron deficiency anemia Needs GI referralNee ds repeat EEndocscopy/ Colonoscopy- High Alert to monitor d/t Asthma, Still having fatty stoolsDiscussed diet in detailDiscussed bowel rest/hydration with waterDiscussed clear liquid diet Related to Chronic pancreatitis Chronic- Followed by Psych back homeMed: lithium and vyvanseLithium level wnl- per ptDiscussed triggersDenies SI/HI/AVH todayRTC in 3 months Related to Anxiety Increased fatigueLab s ordered: CBC, iron panelDiscussed diet and exerciseRTC in 1 month or sooner depending on labs Related to Anemia see plan aboveMed: t rial diethylpropion 75mgDiscussed diet at [id number] Caloric restrictionChange all fluid intake to water only- no sodas or juiceDiscussed low carb to decrease inflammationRTC in 1 month Related to Severe obesity due to excess calories Lab and urine draw Related to En counter for STD screening Weight monitoring Related to Bod y mass index [BMI] 45.0-49.9, adult Dietary needs education Related to Body mass index [BMI] 45.0-49.9, adult Acute onsetMed: otc tonerDiscussed clindamycin face wash versus salicylic acid productsDiscussed dermDiscussed dietDiscussed spfRTC in 1-2 weeks Related to Other skin changes Acute onsetMed: flag yl 500mg TID, protonix , clarithromycin 500mg BID X 14 DAYS, zofran Discussed diet and hydrationDiscussed stool test if worsensH.pylori: POSITIVERTC in 2 weeks Related to H. pylori as the cause of diseases classified elsewhere see plan above Related to Unspe cified abdominal pain Chronic Med: propano lol 20mgdiscussed triggers and anxietydiscussed avoiding caffeine and hydration w/ mostly waterrtc in 1 month Related to Tachycardia Weight monitoring Related to Bod y mass index [BMI] 50.0-59.9, adult Lifestyle education regarding di et Related to Body mass index [BMI] 50.0-59.9, adult Chronic trial propan olol 10mgdiscussed triggers and anxietydiscussed avoiding caffeine and hydration w/ mostly waterrtc in 1 month Related to Tachycardia triamcinolone filled Related to Dry skin dermatitis Chronic-stableLabs D ue: CBC, CMP, Lipids, Urine micro: completed on Today's A1C: 6 %Patient education:1) Continue diet/lifestyle modifications-low carb diet2) ADA diet reviewed as well as diet and exercise3) Daily foot care and inspection discussed4) Continue home blood sugar checks and log for review at next office visit5) Discussed importance of annual diabetic eye examMedication Management:1) Continue Metformin 500mg BID F/U for repeat A1C in 6 months Related to Type 2 diabetes mellitus with hyperglycemia Weight monitoring Related to Bod y mass index [BMI] 45.0-49.9, adult Dietary needs education Related to Body mass index [BMI] 45.0-49.9, adult Pt. Education: 1) To day's instructions / counseling include(s) Dietary management education, guidance, and counseling. Weight monitoring. Related to Body mass index [BMI] 45.0-49.9, adult see plan below Related to Cough 1) Z- pack take as d irected, e-scribed to pharmacy Pt. Education: 1) Patient was encouraged to remain well hydrated and take OTC medications as needed for symptoms Related to Upper respiratory infection Med. Management: 1) Tramadol 50 mg once day as needed for pain x 7 days 0 RF Pt. Education:1) Counseled pt to use heat or ice alternating every 20 minutes for discomfort.2) Counseled pt on RICE-rest, ice, compression, and elevate head.3) RTC if s/s worsen or do not improve. Related to Back pain Weight monitoring Related to Bod y mass index [BMI] 45.0-49.9, adult Lifestyle education regarding di et Related to Body mass index [BMI] 45.0-49.9, adult COVID19 testing toda y-negativeDiscussed symptomatic care Discussed hand hygiene and mask wearingNote given for surgical clearanceDiscussed f/u for routine visit Related to Contact with and (suspected) exposure to other viral communicable diseases Weight monitoring Related to Bod y mass index [BMI] 45.0-49.9, adult Lifestyle education regarding di et Related to Body mass index [BMI] 45.0-49.9, adult New DXLabs discussed Ua: + glucoseUrine micro dueRandom lab: > 200A1C: 7.4%Patient education:1) Continue diet/lifestyle modifications-low carb diet2) ADA diet reviewed as well as diet and exercise3) Daily foot care and inspection discussed4) Discussed eye examMedication Management:1) START Metformin 500mg BIDF/U for repeat A1C in 3 months Related to Type 2 diabetes mellitus with hyperglycemia Weight monitoring Related to Bod y mass index [BMI] 45.0-49.9, adult Lifestyle education regarding di et Related to Body mass index [BMI] 45.0-49.9, adult see plan aboveMed: t rial diethylpropion 75mgDiscussed diet at [id number]- [id number] Caloric restrictionChange all fluid intake to water only- no sodas or juiceDiscussed low carb to decrease inflammationRTC in 1 month Related to Severe obesity due to excess calories Increased fatigueLab s ordered: CBC, iron panelDiscussed diet and exerciseRTC in 1 month or sooner depending on labs Related to Anemia ChronicDiscussed t and exerciseDiscussed hydration with waterDiscussed rest (6-8 hours of sleep)Discussed a sleep journalLabs: ordered RTC in 1 month Related to Fatigue Weight monitoring Related to Bod y mass index [BMI] 45.0-49.9, adult Dietary needs education Related to Body mass index [BMI] 45.0-49.9, adult AcuteDiscussed ROM v s RestDiscussed weight lossDiscussed chiro, massage therapy, and other alternative txsDiscussed pain control (has tried flexeril, tizanidine, biofreeze, voltaren gel, otc medications, with no relief)Med: was given percocet q4-6hours from hospitalCT of thoracic spine, CTA chest, CTA head/neck reviewed and scanned into chartWaiting on labs to send either to pain management or rheumatology Related to Back pain Has seen cardiology and has worn holter monitor- Suggested beta wero, BP wnlDiscussed s/s to reportDiscussed HR goal (70-100)RTC in 3-4 weeks Related to Tachycardia Weight monitoring Related to Bod y mass index [BMI] 45.0-49.9, adult Dietary needs education Related to Body mass index [BMI] 45.0-49.9, adult see plan above Related to Polyc ystic ovarian syndrome HX of PCOSMed: not t aking anythingTransvaginal u/s ordered- hx of lesions in 2013, and cyst on ovariesRTC in 1-2 weeks Related to Amenorrhea, unspecified RecurrentU/s of abdo men orderedCeliac, amylase/lipase orderedLipid panel- triglycerides wnl 10/2020GI last appt 10 months ago, new referral placed last visit- advised to call for apptDiscussed dietDiscussed clear liquid diet- bowel rest, advance as toleratedRTC in 3-4 weeks Related to Abdominal pain Weight monitoring Related to Bod y mass index [BMI] 45.0-49.9, adult Lifestyle education regarding di et Related to Body mass index [BMI] 45.0-49.9, adult A1C recheck Related to Predi abetes obtain labs today Related to Enc ounter for screening for lipoid disorders Chronic- Followed by Psych back homeMed: lithium and vyvanseLithium level wnl- per ptDiscussed triggersDenies SI/HI/AVH todayRTC in 3 months Related to Anxiety [employer] Repeat PAP, biop sy completed 5 years ago Related to Polycystic ovarian syndrome Needs GI referralNee ds repeat EEndocscopy/ Colonoscopy- High Alert to monitor d/t Asthma, Still having fatty stoolsDiscussed diet in detailDiscussed bowel rest/hydration with waterDiscussed clear liquid diet Related to Chronic pancreatitis ChronicMed: iron lana lyDiscussed repeat labsDiscussed dietRTC in 1-2 weeks to discuss labs Related to Iron deficiency anemia Lab and urine draw Related to En counter for STD screening ChronicMed: protonix daily, add pepcid (H2 wero and PPI)EGD requestedDiscussed diet in lengthRTC in 1-2 weeks Related to GERD w/o esophagitis BRIEF EMOTIONAL/BEHAV ASSMT Weight monitoring Related to Bod y mass index [BMI] 45.0-49.9, adult Dietary management e ducation, guidance, and counseling Related to Body mass index [BMI] 45.0-49.9, adult Dietary management e ducation, guidance, and counseling Related to Body mass index [BMI] 45.0-49.9, adult Giving encouragement to exercise Related to Body mass index [BMI] 45.0-49.9, adult would like to nadege diaz with sleep studychris discuss next office visit Related to Sleep apnea consider alternative medicatons for her tachycardia due to cost prohibitiave medications Related to Tachycardia obtain CMP and Hgba1 C within 2 weeks return after labs compelted for review of labs Related to Impaired fasting glucose start on metronidazo le and fluconazoleurine dip negative. Related to Acute vaginitis obtain STD work up Related to Ex posure to communicable disease Giving encouragement to exercise Related to Body mass index (BMI) 40.0-44.9, adult Dietary management e ducation, guidance, and counseling Related to Body mass index (BMI) 40.0-44.9, adult Controlled medicatio n - This patient is stable on the controlled medication that is being prescribed. This patient understands that no early or replacement scripts will be given under any circumstances and that they are required to have a f/u visit for this medical problem every 3 months in order to continue to receive refills of this medication. The patient's history and physical exam have been discussed with the doctor josé antonio the prescription was given and this note will be sent electronically sent to them for co-signature to further verify that they are involved in this patient's care. Related to Low back pain f/u in 2 weeks for repeat pap Re lated to Dysuria Obesity - Encouraged regular exercise at least 20 Minutes of vigorous aerobic exercise 5 days/ week for weight loss as well as healthy food choices and decreased caloric intake. Recomended patient to make and appointment in our Pharmacy Clinic for further individualized recomendations for diet. Related to Body mass index (BMI) 40.0-44.9, adult Dietary management e ducation, guidance, and counseling Related to Body mass index (BMI) 40.0-44.9, adult Prescribed activity/exercise edu cation Related to Body mass index (BMI) 40.0-44.9, adult [employer] URI panel pending. Discussed appropriate supportive care measures. Return to clinic in 1 week if symptoms persist or worsen, sooner if needed. Related to Acute pharyngitis, unspecified Reviewed appropriate dietary and physical activity modifications. Related to Body mass index (BMI) 39.0-39.9, adult Prescribed activity/exercise edu cation Related to Body mass index (BMI) 39.0-39.9, adult Dietary management e ducation, guidance, and counseling Related to Body mass index (BMI) 39.0-39.9, adult -Maintain appropriat e diet-Avoid coffee, alcohol, fats, and spicescontinue omeprazoleadd sucrafate-Weight loss encouraged-RTO in 3 months or sooner prn Related to GERD w/ esophagitis Obesity - patient en couraged to eat healthy, decrease caloric intake and increase aerobic activity to 30 minutes of vigorous aerobic activity 5 days per week Related to Body mass index (BMI) 39.0-39.9, adult URI - Push fluids, o frankie the counter cold/cough medication that is age specific to be taken as directed. Humidifier may give some symptomatic relief. Call and return to office or proceed to ER if symptoms worsen, for severe SOB or increased tempature. Related to Acute pharyngitis, unspecified Giving encouragement to exercise Related to Body mass index (BMI) 39.0-39.9, adult Dietary management e ducation, guidance, and counseling Related to Body mass index (BMI) 39.0-39.9, adult Obesity - patient en couraged to eat healthy, decrease caloric intake and increase aerobic activity to 30 minutes of vigorous aerobic activity 5 days per week Related to Body mass index (BMI) 39.0-39.9, adult After discussing sex ually transmitted diseases patient agrees to STD screening, urine or pap for GC/CH will be sent and labs drawn for HIV, Hepatitis and RPR. Patient understands that they will need to return in person to get STD results that I will not give that information over the phone or in a mailed letter due to privacy issues related to this information. Related to Contact with and (suspected) exposure to infections with a predominantly sexual mode of transmission Giving encouragement to exercise Related to Body mass index (BMI) 39.0-39.9, adult Dietary management e ducation, guidance, and counseling Related to Body mass index (BMI) 39.0-39.9, adult Patient advised to p ba to ED for further evaluation Related to Fatigue chronicfollowed in cardiology Re lated to Tachycardia probable ingrown hairSTI testing sent Related to Acute vaginitis likely related to al denisha, needs to take allergy medsrule out mono Related to Acute pharyngitis, unspecified Dietary management e ducation, guidance, and counseling Related to Body mass index (BMI) 39.0-39.9, adult Obesity - patient en couraged to eat healthy, decrease caloric intake and increase aerobic activity to 30 minutes of vigorous aerobic activity 5 days per week Related to Body mass index (BMI) 37.0-37.9, adult Weight monitoring Related to Bod y mass index (BMI) 37.0-37.9, adult Dietary management e ducation, guidance, and counseling Related to Body mass index (BMI) 37.0-37.9, adult Obesity - patient en couraged to eat healthy, decrease caloric intake and increase aerobic activity to 30 minutes of vigorous aerobic activity 5 days per week Related to Body mass index (BMI) 38.0-38.9, adult OM - Fluids, Tylenol as needed and take antibiotic as directed Related to Otitis media Giving encouragement to exercise Related to Body mass index (BMI) 38.0-38.9, adult Dietary management e ducation, guidance, and counseling Related to Body mass index (BMI) 38.0-38.9, adult f/u 3 months, sooner if problems Related to LGSIL on cytologic smear of cervix Obesity - patient en couraged to eat healthy, decrease caloric intake and increase aerobic activity to 30 minutes of vigorous aerobic activity 5 days per week Related to Body mass index (BMI) 37.0-37.9, adult Giving encouragement to exercise Related to Body mass index (BMI) 37.0-37.9, adult Dietary management e ducation, guidance, and counseling Related to Body mass index (BMI) 37.0-37.9, adult Obesity - patient en couraged to eat healthy, decrease caloric intake and increase aerobic activity to 30 minutes of vigorous aerobic activity 5 days per week Related to Body mass index (BMI) 36.0-36.9, adult Giving encouragement to exercise Related to Body mass index (BMI) 36.0-36.9, adult Lifestyle education regarding di et Related to Body mass index (BMI) 36.0-36.9, adult f/u 6 months, sooner i f problems will discuss lab resultswith her when available. Related to Contact with and (suspected) exposure to infections with a predominantly sexual mode of transmission Annual Wellness - We discussed diet, exercise, caffeine, smoking, alcohol and drugs. We discussed safe sex and sexually transmitted diseases. All questions were answered Related to Encntr for general adult medical exam w/o abnormal findings Dietary management e ducation, guidance, and counseling Related to Body mass index (BMI) 28.0-28.9, adult Giving encouragement to exercise Related to Body mass index (BMI) 28.0-28.9, adult Prednisone 20mg BID x 7 days. Discussed appropriate use of analgesics as needed.Return to clinic in 1 week if symptoms persist or worsen, sooner if needed. Related to Pain in right wrist Discussed importance of regularly taking Qvar to reduce reliance on rescue inhaler.Continue current medication(s) as directed. Discussed when to go to the ER. Return to clinic in 1 week if symptoms persist or worsen, sooner if needed. Related to Unspecified asthma, uncomplicated Discussed appropriat e supportive care measures. Return to clinic in 1 week if symptoms persist or worsen, sooner if needed. Related to Acute upper respiratory infection, unspecified Reviewed appropriate dietary and physical activity modifications. Related to Body mass index (BMI) 36.0-36.9, adult f/u at annual in [facility] m [facility], soner if problems Related to Upper abdominal pain, unspecified Dietary management e ducation, guidance, and counseling Related to Body mass index (BMI) 37.0-37.9, adult Giving encouragement to exercise Related to Body mass index (BMI) 37.0-37.9, adult Obesity - patient en couraged to eat healthy, decrease caloric intake and increase aerobic activity to 30 minutes of vigorous aerobic activity 5 days per week Related to Body mass index (BMI) 36.0-36.9, adult Giving encouragement to exercise Related to Body mass index (BMI) 36.0-36.9, adult Dietary management e ducation, guidance, and counseling Related to Body mass index (BMI) 36.0-36.9, adult Giving encouragement to exercise Related to Body mass index (BMI) 35.0-35.9, adult Dietary management e ducation, guidance, and counseling Related to Body mass index (BMI) 35.0-35.9, adult Obesity - patient en couraged to eat healthy, decrease caloric intake and increase aerobic activity to 30 minutes of vigorous aerobic activity 5 days per week Related to Body mass index (BMI) 35.0-35.9, adult Giving encouragement to exercise Related to Body mass index (BMI) 35.0-35.9, adult Dietary management e ducation, guidance, and counseling Related to Body mass index (BMI) 35.0-35.9, adult Obesity - patient en couraged to eat healthy, decrease caloric intake and increase aerobic activity to 30 minutes of vigorous aerobic activity 5 days per week Related to Body mass index (BMI) 34.0-34.9, adult Dietary management e ducation, guidance, and counseling Related to Body mass index (BMI) 34.0-34.9, adult Giving encouragement to exercise Related to Body mass index (BMI) 34.0-34.9, adult After discussing sex ually transmitted diseases patient agrees to STD screening, urine or pap for GC/CH will be sent and labs drawn for HIV, Hepatitis and RPR. Patient understands that they will need to return in person to get STD results that I will not give that information over the phone or in a mailed letter due to privacy issues related to this information. Related to Contact with and (suspected) exposure to infections with a predominantly sexual mode of transmission Giving encouragement to exercise Related to Body mass index (BMI) 34.0-34.9, adult Giving encouragement to exercise Related to Body mass index (BMI) 34.0-34.9, adult Giving encouragement to exercise Related to Body mass index (BMI) 34.0-34.9, adult Dietary management e ducation, guidance, and counseling Related to Body mass index (BMI) 34.0-34.9, adult Obesity - patient en couraged to eat healthy, decrease caloric intake and increase aerobic activity to 30 minutes of vigorous aerobic activity 5 days per week Related to Body mass index (BMI) 35.0-35.9, adult Giving encouragement to exercise Related to Body mass index (BMI) 35.0-35.9, adult f/u annually and as needed Relat ed to Unspecified asthma, uncomplicated URI - Push fluids, o frankie the counter cold/cough medication that is age specific to be taken as directed. Humidifier may give some symptomatic relief. Call and return to office or proceed to ER if symptoms worsen, for severe SOB or increased tempature. Related to Sinusitis Obesity - patient en couraged to eat healthy, decrease caloric intake and increase aerobic activity to 30 minutes of vigorous aerobic activity 5 days per week Related to Body mass index (BMI) 34.0-34.9, adult Lifestyle education regarding di et Related to Body mass index (BMI) 34.0-34.9, adult Prescribed activity/exercise edu cation Related to Body mass index (BMI) 34.0-34.9, adult After discussing sex ually transmitted diseases patient agrees to STD screening, urine or pap for GC/CH will be sent and labs drawn for HIV, Hepatitis and RPR. Patient understands that they will need to return in person to get STD results that I will not give that information over the phone or in a mailed letter due to privacy issues related to this information. Related to Acute vaginitis After discussing sex ually transmitted diseases patient agrees to STD screening, urine or pap for GC/CH will be sent and labs drawn for HIV, Hepatitis and RPR. Patient understands that they will need to return in person to get STD results that I will not give that information over the phone or in a mailed letter due to privacy issues related to this information. Related to Contact with and (suspected) exposure to infections with a predominantly sexual mode of transmission Obesity - patient en couraged to eat healthy, decrease caloric intake and increase aerobic activity to 30 minutes of vigorous aerobic activity 5 days per week Related to Body mass index (BMI) 35.0-35.9, adult Giving encouragement to exercise Related to Body mass index (BMI) 35.0-35.9, adult Dietary management e ducation, guidance, and counseling Related to Body mass index (BMI) 35.0-35.9, adult Obesity - patient en couraged to eat healthy, decrease caloric intake and increase aerobic activity to 30 minutes of vigorous aerobic activity 5 days per week Related to Obesity Giving encouragement to exercise Related to Obesity, unspecified Lifestyle education regarding di et Related to Obesity, unspecified Chronic - not well c ontrolledContinue Albuterol HFAStart Singulair as orderedPFT's in officePre-bronchodilator: 75%; Post-bronchodilator: 80%Chest x-ray to be done in officeSend for formal radiology readRTC in 2-4 weeks for f/u Related to Asthma ChronicPt reports Dx of Lordosis at previous PCPRequested medical records - including x-ray and MRIStart Robaxin as orderedStart Ibuprofen 800mg as orderedRTC in 2-4 weeks for f/u Related to Neck pain Giving encouragement to exercise Related to Obesity, unspecified Lifestyle education regarding di et Related to Obesity, unspecified Assessments Type Assessment Date No Information Patient Care Teams Name Effective Dates (start - stop) Status Members No Information
== END 2025-01-15 13:49 | disposition home or self-care (01) ==
LOC: HO.PMC 13:20
PROVIDERS: PCP Registered Nurse; Referring Provider Registered Nurse; Visit Provider Internal Medicine
DX: M47.816 Spondylosis without myelopathy or radiculopathy, lumbar region (principal); M62.85 Dysfunction of the multifidus muscles, lumbar region; G89.29 Other chronic pain
CPT/HCPCS: 99204

== ENCOUNTER → 2025-01-15 13:19 | Outpatient (BNVA) | payer OTHER, SELFPAY | PROVIDERS: PCP Registered Nurse; Referring Provider Registered Nurse; Visit Provider Internal Medicine ==